=== PATIENT | female | born 1955 | race Caucasian/White ===

== ENCOUNTER 2022-11-22 11:19 | Outpatient (CLI) | payer BC, SELFPAY ==
--- NOTE | 2022-11-22 11:15 | RT.EKG_ITS ---
APPROVED REPORT Exam: Resting ECG Reason for Exam: cardiac evaluation Patient Location: O HR:122 bpm ECG Measurements Heart Rate 122 AXIS VT [id number] P [id number] QRSd 85 QRS 86 QT 335 T 6 QTc 478 Conclusion Atrial fibrillation...V-rate 79-163, irreg A-activity Borderline right axis deviation...QRS axis ( 81, 90) Consider left ventricular hypertrophy...(S V1/V2+R V5/V6) >3.25mV
== END 2022-11-22 11:20 | disposition home or self-care (01) ==
LOC: DI.CARD 11:20
PROVIDERS: PCP Neuromusculoskeletal Medicine & OMM; Visit Provider Internal Medicine Cardiovascular Disease
DX: I10 Essential (primary) hypertension (principal); I48.91 Unspecified atrial fibrillation; R94.31 Abnormal electrocardiogram [ECG] [EKG]
CPT/HCPCS: 93010

== ENCOUNTER 2025-05-13 09:17 | Outpatient (CLI) | payer OTHER, SELFPAY | END 2025-05-13 09:18 | disposition home or self-care (01) | LOC: DI.CARD 09:19 | PROVIDERS: PCP Neuromusculoskeletal Medicine & OMM; Visit Provider Internal Medicine Cardiovascular Disease | CPT/HCPCS: 93010 ==